=== PATIENT | female | born 1985 | race Two or more races ===

== ENCOUNTER → 2018-09-18 | Outpatient (CLI) | payer OTHER | END | disposition home or self-care (01) | LOC: RAD 12:49 | PROVIDERS: ATTEND Obstetrics & Gynecology | DX: N97.1 Female infertility of tubal origin (principal) | CPT/HCPCS: 74740 ==

== ENCOUNTER → 2018-12-05 | Outpatient (CLI) | payer OTHER | END | disposition home or self-care (01) | LOC: CFH 09:24 | PROVIDERS: ATTEND Family Medicine | DX: Z87.440 Personal history of urinary (tract) infections (principal) | CPT/HCPCS: 76770 ==

== ENCOUNTER → 2018-12-14 | Outpatient (CLI) | payer OTHER ==
[~2018-12-14] MED LIST: LACT1CAP43 PO; MESA1.2T3 PO; METF750T2 PO; WOMEN'S VITAMIN PO
[2018-12-14 14:11] LABS: ALANINE AMINOTRANSFERASE 30 U/L (12-78); ALBUMIN 3.6 g/dL (3.4-5.0); ANION GAP 5 mmol/L (5-15); CALCIUM 8.8 mg/dL (8.5-10.1); CHLORIDE 109 mmol/L (98-107)
[2018-12-14 14:13] LABS: ALKALINE PHOSPHATASE 67 U/L (45-117); BILIRUBIN,TOTAL 0.3 mg/dL (0.2-1.0); CREATININE 0.83 mg/dL (0.55-1.02)
== END | disposition home or self-care (01) ==
LOC: STAR 12:57
PROVIDERS: ATTEND Specialist
DX: Z01.818 Encounter for other preprocedural examination (principal)
CPT/HCPCS: 36415; 80053

== ENCOUNTER 2018-12-20 12:19 | Day surgery (SDC) | payer OTHER ==
[2018-12-14 13:35] VITALS: BP 105/66
[~2018-12-20] VITALS: Ht 167.6 cm; Wt 68.5 kg
[2018-12-20] MEDS ORDERED: LACTATED RINGERS 1,000 ML IV SCH (12:49)
[2018-12-20] MEDS ORDERED: SCOPOLAMINE PATCH, 1.5MG PATCH.TD72 TD ONE (13:00)
[2018-12-20] MEDS ORDERED: ACETAMINOPHEN 500 MG TABLET PO ONE (13:00)
[2018-12-20] MEDS ORDERED: DIAZEPAM 5 MG TABLET PO ONE (13:00)
[2018-12-20 13:03] LABS: HCG UR SG 1.033 (1.003-1.030)
[2018-12-20] MEDS ORDERED: METHYLENE BLUE 10 MG/ML 10ML ONE (14:09)
[2018-12-20] MEDS ORDERED: EPINEPHRINE 1 MG/ML, 1ML ONE (14:09)
[2018-12-20] MEDS ORDERED: SILVER NITRATE STICK TP ONE (14:09)
[2018-12-20] MEDS ORDERED: BUPIVACAINE/PF 0.25% ONE (14:09)
[2018-12-20] MEDS ORDERED: LORazepam 2 MG/ML, 1ML IVPush PRN (14:30)
[2018-12-20] MEDS ORDERED: FENTANYL PF 100 MCG/2ML IV PRN (14:30)
[2018-12-20] MEDS ORDERED: OXYcodone 5 MG/5 ML ORAL.SOL UDC PO PRN (14:30)
[2018-12-20] MEDS ORDERED: ONDANSETRON ODT 8 MG PO PRN (14:30)
[2018-12-20] MEDS ORDERED: ONDANSETRON 2MG/ML, 2ML IV PRN (14:30)
[2018-12-20] MEDS ORDERED: HYDROmorphone 2 MG/ML, 1ML IVPush PRN (14:30)
[2018-12-20] MEDS ORDERED: PROMETHAZINE 25 MG/ML, 1ML IV PRN (14:30)
[2018-12-20] MEDS ORDERED: PROPOFOL 10 MG/ML, 20ML ONE (14:33)
[2018-12-20] MEDS ORDERED: ROCURONIUM 10 MG/ML,10ML ONE (14:33)
[2018-12-20] MEDS ORDERED: CEFAZOLIN 1,000 MG ONE (14:33)
[2018-12-20] MEDS ORDERED: SUCCINYLCHOLINE 20 MG/ML, 10ML ONE (14:33)
[2018-12-20] MEDS ORDERED: LIDOCAINE-MPF 1%, 5ML ONE (14:33)
[2018-12-20] MEDS ORDERED: KETOROLAC 30 MG/1 ML ONE (14:33)
[2018-12-20] MEDS ORDERED: ONDANSETRON 2MG/ML, 2ML ONE (14:33)
[2018-12-20] MEDS ORDERED: DEXAMETHASONE 4 MG/ML, 1ML ONE (14:33)
== END 2018-12-20 18:00 | disposition home or self-care (01) ==
LOC: OUT 12:19
PROVIDERS: ATTEND Specialist
DX: N73.6 Female pelvic peritoneal adhesions (postinfective) (principal); N83.8 Other noninflammatory disorders of ovary, fallopian tube and broad ligament; A74.81 Chlamydial peritonitis; E11.9 Type 2 diabetes mellitus without complications; Z79.84 Long term (current) use of oral hypoglycemic drugs
CPT/HCPCS: 58345; 58660; 81025; J0171; J0330; J0690; J1100; J1885; J2250; J2405; J2704; J2710; J3010; J3490; J7120; Q9968